=== PATIENT | female | born 1990 | race Two or more races ===

== ENCOUNTER 2023-08-31 02:45 | Inpatient (IN) | payer OTHER ==
[~2023-08-31] VITALS: Ht 165.1 cm; Wt 70.3 kg
[2023-08-31 03:29] LABS: PH,URINE 6.5 (5.0-8.0); URINE APPEARANCE Clear; URINE BILIRRUBIN Negative (NEGATIVE); URINE BLOOD Small; URINE COLOR Yellow; URINE GLUCOSE Negative (NEGATIVE); URINE LEUKOCYTE Negative; URINE NITRATE Negative; URINE PROTEIN Negative (NEGATIVE); URINE UROBILINOGEN 0.2 E.U./dl
[2023-08-31 03:30] LABS: HEMATOCRIT 37.4 % (36.0-45.00); HEMOGLOBIN 12.7 g/dL (12.0-15.00); MEAN CELL VOLUME 90.3 fL (80.00-100.00); MEAN CORPUSCULAR HEMOGLOBIN 30.6 pg (27.00-32.0); MEAN CORPUSCULAR HGB CONC 33.9 g/dl (32.0-36.0); PLATELET COUNT 240 K/uL (150-450); RED BLOOD COUNT 4.14 M/uL (4.00-6.00); RED CELL DISTRIBUTION WIDTH 14.1 % (11.5-14.5)
[2023-08-31 03:32] LABS: URINE RBC 123.4 uL (0.0-20.8); URINE WBC 16.1 uL (0.0-23.2)
[2023-08-31 03:49] LABS: INR < 0.93; PROTHROMBIN TIME 9.8 SECONDS (9.0-11.5)
[2023-08-31 03:52] LABS: ALBUMIN 2.9 gm/dL (3.4-5.0); BILIRUBIN TOTAL 0.25 mg/dL (0.3-1.2); CALCIUM 8.5 mg/dL (8.5-10.1); CREATININE SERUM 0.77 mg/dL (0.55-1.02); GFR 85.31; GLOBULINA 3.4 G/DL (2.4-3.5); POTASSIUM 3.74 mEq/L (3.5-5.1); TOTAL PROTEIN 6.3 gm/dL (6.4-8.2)
[2023-08-31] MEDS ORDERED: OXYTOCIN 10 UNITS/ML VIAL ONE ×2 (04:44→06:32)
[2023-08-31] MEDS ORDERED: CARBOPROST TROMETHAMINE 250 MCG/ML AMPUL IM ONE ×2 (04:44→05:45)
[2023-08-31] MEDS ORDERED: LIDOCAINE HCL 1% 200MG/20ML VIAL IJ SCH (05:30)
[2023-08-31] MEDS ORDERED: CHLORHEXIDINE GLUCONATE 120 ML BOTTLE TOP SCH (05:30)
[2023-08-31] MEDS ORDERED: ERYTHROMYCIN BASE 1 GM TUBE OP SCH (05:30)
[2023-08-31] MEDS ORDERED: IBUprofen 400 MG TABLET PO PRN (05:30)
[2023-08-31] MEDS ORDERED: FERROUS SULFATE 325 MG TABLET.EC PO SCH (05:32)
[2023-08-31] MEDS ORDERED: OXYTOCIN 2,000 ML IV SCH (05:45)
[2023-08-31 12:27] LABS: HEMATOCRIT 34.1 % (36.0-45.00); HEMOGLOBIN 11.7 g/dL (12.0-15.00); MEAN CORPUSCULAR HEMOGLOBIN 31.5 pg (27.00-32.0); MEAN CORPUSCULAR HGB CONC 34.2 g/dl (32.0-36.0); PLATELET COUNT 255 K/uL (150-450); RED BLOOD COUNT 3.71 M/uL (4.00-6.00)
[2023-09-01] MEDS ORDERED: ACETAMINOPHEN 500 MG GEL..CAP PO SCH (13:00)
[2023-09-02 08:52] LABS: HEMATOCRIT 27.6 % (36.0-45.00); HEMOGLOBIN 9.8 g/dL (12.0-15.00); MEAN CELL VOLUME 91.3 fL (80.00-100.00); MEAN CORPUSCULAR HEMOGLOBIN 32.5 pg (27.00-32.0); MEAN CORPUSCULAR HGB CONC 35.6 g/dl (32.0-36.0); PLATELET COUNT 222 K/uL (150-450); RED BLOOD COUNT 3.02 M/uL (4.00-6.00); RED CELL DISTRIBUTION WIDTH 13.8 % (11.5-14.5)
== END 2023-09-02 12:45 | disposition home or self-care (01) | DRG 807 ==
LOC: LDR 02:45 → OB/GYN 02:45 → LDR 06:16 → OB/GYN 10:15
PROVIDERS: ADMIT Specialist; ATTEND Specialist
PROC: 10E0XZZ Delivery of Products of Conception, External Approach (ICD-10-PCS; principal; 2023-08-31)
PROC: 0W8NXZZ Division of Female Perineum, External Approach (ICD-10-PCS; 2023-08-31)
PROC: 4A1HXCZ Monitoring of Products of Conception, Cardiac Rate, External Approach (ICD-10-PCS; 2023-08-31)
DX: O71.82 Other specified trauma to perineum and vulva (principal); Z37.0 Single live birth; Z3A.49 Greater than 42 weeks gestation of pregnancy; Z20.822 Contact with and (suspected) exposure to COVID-19